=== PATIENT | female | born 1985 | race Caucasian/White ===

== ENCOUNTER 2016-12-09 08:04 | Inpatient (IN) | payer OTHER ==
[2016-12-09] VITALS (93 sets, daily range): BP systolic 119–154; BP diastolic 55–89; PULSE 81–140; RESP 18; TEMP 98–98.3
[~2016-12-09] VITALS: Ht 160 cm; Wt 98.9 kg
[2016-12-09] MEDS ORDERED: LACTATED RINGER'S 1000 ML INJ 1,000 ML IV PRN (08:44)
[2016-12-09] MEDS ORDERED: OXYTOCIN 30 UNITS-500ML PREMIX 500 ML IV ONE (08:45)
[2016-12-09] MEDS ORDERED: MINERAL OIL 10 ML VIAL TOPICAL PRN (08:45)
[2016-12-09] MEDS ORDERED: SODIUM CHLORID 0.9% 500 ML INJ 500 ML IV PRN (08:45)
[2016-12-09] MEDS ORDERED: CITRIC ACID-SODIUM CITRATE LIQ 30 ML UDC PO SCH (08:45)
[2016-12-09] MEDS ORDERED: ONDANSETRON HCL 4 MG/2 ML VIAL IV PRN (08:45)
[2016-12-09] MEDS ORDERED: LIDOCAINE HCL 1% 50 ML VIAL I-DERMAL PRN (08:45)
[2016-12-09] MEDS ORDERED: LIDOCAINE HCL 1% 50 ML VIAL INFIL PRN (08:45)
[2016-12-09] MEDS ORDERED: CALNTAB (08:54)
[2016-12-09] MEDS ORDERED: SODIUM CHLOR 0.9% 1000 ML INJ 1,000 ML IV PRN (09:04)
--- NOTE | 2016-12-09 09:20 | HHI.HP ---
History & Physical H&P HPI HPI Chief Complaint rupture of membranes, contractions Date Seen: Dec 09, 2016 Travel History International Travel<30 Days: No Contact w/Intl Traveler<30Days: No Known Affected Area: No History of Present Illness HPI Ms. Arrington is a 31 yo G[address] Charles at 39 4/7 weeks (SE 12/12/2016) who presents with contractions following rupture of membranes this morning. Patient reports that her water grossly broken 6 AM. Since this time, patient is had increasing pain with contractions of increasing frequency, currently occurring approximately every 23 minutes. Patient reports slight bloody discharge when her water initially broke but none since. Patient states she had normal movement until onset of contractions has not been doing as much since her contractions started. Patient does not report other symptoms this time; no headache, visual changes, chest pain, significant shortness of breath, nausea/vomiting, dysuria, or asymmetric leg swelling. Patient states that her blood pressures have been monitored during and that baseline preeclampsia labs been previously obtained by Dr. Charles. Patient otherwise reports benign course with reassuring ultrasound and labs. Patient states she is GBS negative. Para: 0 : 1 History (Limited) History Past Medical History Narrative Medical Headaches Obstetric History Obstetric History G1 PIH Past Surgical History Narrative Surgical [place] teeth removal Mole removal Family History Narrative Family History Unspecified cancer Social History Alcohol Use: No Tobacco Use: No Substance Abuse: No Allergies-Medications Allergies-Medications (Allergen,Severity, Reaction): Coded Allergies: No Known Allergies (Verified , 12/09/16) Home Meds Reported Medications Vitamin (Calna)1 Tab Tab 12/09/16 ROS Review of Systems General / Constitutional: No: Fever, Chills HENT: No: Headaches Cardiovascular: No: Chest Pain or Discomfort Respiratory: No: Short of Breath (mild throughout ) Gastrointestinal: No: Nausea, Vomiting Genitourinary: No: Dysuria Physical Exam Physical Exam Blood pressures: 148/99, 154/100, 152/87 HR 80s90s T 98.2 RR 18 Narrative GENERAL: Well-nourished, well-developed patient. SKIN: Warm and dry. HEAD: Normocephalic and atraumatic. EYES: No scleral icterus. No injection or drainage. ENT: No nasal drainage noted. Mucous membranes pink. Airway patent. NECK: Supple, trachea midline. No JVD. CARDIOVASCULAR: Regular rate and rhythm without murmurs, gallops, or rubs. RESPIRATORY: CTAB, normal rate ABDOMEN/GI: Abdomen soft, non-tender, bowel sounds present, no rebound, no guarding Gravid EXTREMITIES: No cyanosis or edema. NEUROLOGICAL: Awake and alert. Motor and sensory function grossly within normal limits. GENITOURINARY: (Exam performed by nursing staff) External Genitalia: intact and normal in appearance Cervix: Dilatation: 4 Effacement: 80% Station: -1 Presentation: V Membranes: Ruptured Uterine Contractions: Q23 minutes FHT's: Category: 1 Baseline: 140 Reactive: Y Variability: Moderate Decels: None Data Data Data Orders Ob (2e) Additional Admit Info (12/09/16 08:40) Admit To Inpatient (12/09/16 ) Code Status (12/09/16 08:44) Vital Signs (Adult) .Per protocol (12/09/16 08:44) Heart (12/09/16 08:44) Amnioinfusion (12/09/16 08:44) Urinary Catheter Management .ONCE (12/09/16 08:44) Diet Liquid (12/09/16 Breakfast) Lactated Ringer's 1000 Ml Inj (Lr 1000 M (12/09/16 08:44) Lactated Ringer's 1000 Ml Inj (Lr 1000 M (12/09/16 08:44) Sodium Chlorid 0.9% 500 Ml Inj (Ns 500 M (12/09/16 08:45) Sodium Chlor 0.9% 1000 Ml Inj (Ns 1000 M (12/09/16 09:04) Lidocaine 1% Inj (50 Ml) (Xylocaine 1% I (12/09/16 08:45) Citric Acid-Sodium Citrate Liq (Bicitra (12/09/16 08:45) Ondansetron Inj (Zofran Inj) (12/09/16 08:45) Fentanyl Inj (Fentanyl Inj) (12/09/16 08:45) Fentanyl Inj (Fentanyl Inj) (12/09/16 08:45) Complete Blood Count With Diff (12/09/16 08:44) Hold Clot (12/09/16 08:44) Abo/Rh Blood Type (12/09/16 08:44) Urinalysis - C+S If Indicated (12/09/16 08:44) Resp Oxygen Non Rebreathe Mask (12/09/16 ) ^ Epidural / Intrathecal Infus (12/09/16 08:44) Oxytocin 30 Units-500ml Premix (Pitocin (12/09/16 08:45) Lidocaine 1% Inj (50 Ml) (Xylocaine 1% I (12/09/16 08:45) Light Mineral Oil (Muri-Lube Oil) (12/09/16 08:45) Comprehensive Metabolic Panel (12/09/16 08:49) Protein Creat Ratio, Random Ur (12/09/16 08:49) MDM MDM Medical Record Reviewed: Yes Narrative Course / MDM 31 yo G1 patient of [address]. Charles at 39 4/7 weeks (SE 12/12/2016) who presents with contractions following rupture of membranes this morning -Contractions every 23 minutes -Cat 1 rhythm -Cervix 40/80%/-1 -GBS negative -PIH Impression: SBP 140's-150's/90's-100 today; patient reports mildly elevated BP during Plan: We'll plan to admit for labor Start IV fluids We'll obtain UA, CBC, blood typing Continue EFM We'll add CMP and urine protein/creatinine ratio due to elevated blood pressure and concern for worsening intrapartum Bandar Alonzo MD R2 Dec 09, 2016 09:20
[2016-12-09 09:35] LABS: AUTOMATED NEUTROPHIL # 7.1 TH/MM3 (1.8-7.7); BASOPHIL # 0.1 TH/MM3 (0-0.2); BASOPHIL % 0.8 % (0.0-2.0); EOSINOPHIL # 0.1 TH/MM3 (0-0.4); EOSINOPHIL % 0.9 % (0.0-4.0); HEMATOCRIT 37.2 % (35.0-46.0); HEMO FLAGS DIFF FINAL; LYMPH % 17.7 % (9.0-44.0); LYMPHOCYTE # 1.8 TH/MM3 (1.0-4.8); MEAN CORPUSCULAR HEMOGLOBIN 27.6 PG (27.0-34.0); MEAN CORPUSCULAR HGB CONC 33.3 % (32.0-36.0); MONO % 10.2 % (0.0-8.0); NEUT % 70.4 % (16.0-70.0); PLATELET COUNT 217 TH/MM3 (150-450); RED BLOOD COUNT 4.48 MIL/MM3 (4.00-5.30); RED CELL DISTRIBUTION WIDTH 13.7 % (11.6-17.2); WHITE BLOOD COUNT 10.1 TH/MM3 (4.0-11.0)
[2016-12-09 10:04] LABS: BACTERIA, URINE FEW /hpf; BLOOD, URINE SMALL (NEG); COMMENT (UR) CULTURE INDICATED; CULTURE IF INDICATED CULTURE INDICATED; GLUCOSE,URINE NEG (NEG); KETONE, URINE NEG (NEG); NITRITE,URINE NEG (NEG); SQUAMOUS EPITHELIAL CELL URINE 2 /hpf (0-5); URINE COLOR YELLOW (YELLW/STRAW)
[2016-12-09 10:10] LABS: ALKALINE PHOSPHATASE 295 U/L (45-117); ALT (GPT) 17 U/L (10-53); ANION GAP 10 MEQ/L (5-15); AST (GOT) 15 U/L (15-37); BICARBONATE 23.4 MEQ/L (21.0-32.0); BLOOD UREA NITROGEN 7 MG/DL (7-18); CHLORIDE 105 MEQ/L (98-107); GLOMERULAR FILTRATION RATE 85 ML/MIN (>89); POTASSIUM 3.8 MEQ/L (3.5-5.1); SODIUM (NA) 138 MEQ/L (136-145); TOTAL BILIRUBIN ADULT 0.2 MG/DL (0.2-1.0)
[2016-12-09] MEDS: LACTATED RINGER'S 1000 ML INJ 1,000 ML IV SCH ×2 (14:25→16:02)
[2016-12-09] MEDS ORDERED: BUPIVACAINE HCL PF 0.25% 10 ML VIAL ONE (15:26)
[2016-12-09] MEDS ORDERED: fentaNYL 2MCG-BUPIV 0.125% INJ 100 ML ONE (15:43)
[2016-12-09] MEDS ORDERED: MEASLES, MUMPS, RUBELLA VACCINE 0.5 ML VIAL SQ ONE (16:00)
[2016-12-09] MEDS ORDERED: DIPHTH/TETANUS/ACEL PERTUSSIS (BOOSTER) 0.5 ML VIAL/PFS IM ONE (16:00)
[2016-12-09] MEDS ORDERED: NO SYSTEM NARCOTICS PRN (17:00)
[2016-12-09] MEDS ORDERED: DO NOT ADMINISTER ANTICOAGULANTS PRN (17:00)
[2016-12-09] MEDS ORDERED: ePHEDrine/NS 25 MG/5 ML SYR IV PRN (17:00)
[2016-12-09] MEDS ORDERED: fentaNYL 2MCG-BUPIV 0.125% 100 ML EPIDURAL SCH (17:00)
--- NOTE | 2016-12-09 18:43 | PD.OB.DELI ---
Delivery Date: Dec 09, 2016 Anesthesia: Epidural Episiotomy: None Vaginal Delivery: Normal, Spontaneous Presentation: Occiput anterior Nuchal Cord: Other (body cord delivered through) Delayed cord clamping (45 sec): Yes Infant: Female One Minute : 9 Five Minute : 9 Weight: 7#10oz Placenta: Spontaneous delivery, Intact, 3 vessel cord Laceration: Vaginal laceration, 2 deg Repair: Chromic running Additional Information EBL 300 mL terminal meconium healthy female Kirstin Irvin MD Dec 09, 2016 18:43
[2016-12-09] MEDS ORDERED: ACETAMINOPHEN 325 MG TAB PO PRN (18:45)
[2016-12-09] MEDS ORDERED: SODIUM CHLORIDE 0.9% FLUSH 10 ML FLUSH IV FLUSH PRN (18:45)
[2016-12-09] MEDS ORDERED: ALUMINUM/MAGNESIUM/SIMETH 30 ML CUP PO PRN (18:45)
[2016-12-09] MEDS ORDERED: oxyCODONE/ACETAMINOPHEN 5 MG/325 MG TAB PO PRN ×2 (18:45)
[2016-12-09] MEDS ORDERED: WITCH HAZEL 50%/GLYCERIN 12.5% 40 PAD JAR TOPICAL PRN (18:45)
[2016-12-09] MEDS ORDERED: ZOLPIDEM TARTRATE 5 MG TAB PO PRN (18:45)
[2016-12-09] MEDS ORDERED: BENZOCAINE 20% TOPICAL SPRAY 60 ML CAN TOPICAL PRN (18:45)
[2016-12-09] MEDS ORDERED: ONDANSETRON ODT 4 MG TAB PO PRN (18:45)
[2016-12-09] MEDS ORDERED: IBUP-232 PO (18:48)
[2016-12-09] MEDS ORDERED: PERI8.6T PO (18:48)
--- NOTE | 2016-12-09 18:51 | HHI.DCPOC ---
Discharge Care Plan Diagnosis: (1) (spontaneous vaginal delivery) Your Health Problems Are: Vaginal delivery Report Symptoms to Your Doctor -Temperate above 100.5 degrees -Redness, of incision or excessive or foul smelling drainage -Unusual pain or calf pain -Increased vaginal bleeding -Painful or difficulty urinating -Feelings of extreme sadness or anxiety after 2 weeks Goals to Promote Your Health * To prevent worsening of your condition and complications * To maintain your health at the optimal level Directions to Meet Your Goals Take your medications as prescribed Follow your dietary instruction Follow activity as directed Ensure plenty of rest for recovery Drink fluids for hydration Keep your appointments as scheduled Take your immunizations and boosters as scheduled If your symptoms worsen call your PCP, if no PCP go to Urgent Care Center or Emergency Room Smoking is Dangerous to Your Health. Avoid second hand smoke Call the 24-hour crisis hotline for domestic abuse at Kirstin Irvin MD Dec 09, 2016 18:50
[2016-12-09] MEDS ORDERED: SODIUM CHLORIDE 0.9% FLUSH 10 ML FLUSH IV FLUSH SCH (21:00)
[2016-12-10] MEDS: DOCUSATE SODIUM 50 MG/SENNA 8.6 MG TAB PO SCH ×3 (00:49→21:39)
[2016-12-10] MEDS: IBUPROFEN 600 MG TAB PO PRN ×4 (00:50→22:52)
--- NOTE | 2016-12-10 05:22 | HHI.OB ---
Subjective Post Day: 1 Remarks s/p of healthy term female Objective Vitals/I&O Vital Signs Date Time Temp Pulse Resp B/P Pulse Ox O2 Delivery O2 Flow Rate FiO2 12/09/16 20:30 18 12/09/16 19:31 83 124/69 12/09/16 19:15 91 129/74 12/09/16 19:08 18 12/09/16 19:00 86 124/75 12/09/16 18:49 98.0 12/09/16 18:45 105 140/76 12/09/16 18:32 18 12/09/16 18:30 112 129/70 12/09/16 18:15 102 143/82 12/09/16 18:01 97 12/09/16 17:45 149/76 12/09/16 17:35 113 12/09/16 17:30 114 153/74 12/09/16 17:25 131 12/09/16 17:20 116 12/09/16 17:17 83 143/74 12/09/16 17:15 98 12/09/16 17:15 111 12/09/16 17:00 95 123/60 12/09/16 16:45 105 132/72 12/09/16 16:39 91 128/76 12/09/16 16:36 130/72 12/09/16 16:36 88 12/09/16 16:33 85 12/09/16 16:33 130/75 12/09/16 16:30 88 12/09/16 16:30 90 130/71 12/09/16 16:27 89 130/76 12/09/16 16:25 89 12/09/16 16:24 81 129/65 12/09/16 16:22 100 133/71 12/09/16 16:20 89 12/09/16 16:20 91 12/09/16 16:20 98.3 12/09/16 16:20 119/65 12/09/16 16:19 96 12/09/16 16:15 113 141/75 12/09/16 16:15 100 12/09/16 16:12 124 12/09/16 16:09 96 12/09/16 16:09 142/81 12/09/16 16:06 93 12/09/16 16:06 123/89 12/09/16 16:05 92 12/09/16 16:03 87 12/09/16 16:03 18 12/09/16 16:03 143/71 12/09/16 16:00 102 12/09/16 16:00 151/73 12/09/16 15:57 103 131/77 12/09/16 15:55 96 12/09/16 15:54 18 12/09/16 15:54 106 138/79 12/09/16 15:51 112 154/86 12/09/16 15:50 93 12/09/16 15:48 93 143/73 12/09/16 15:45 109 146/69 12/09/16 15:45 88 12/09/16 15:43 140 121/55 12/09/16 15:40 111 12/09/16 15:40 97 144/83 12/09/16 15:35 108 12/09/16 15:30 116 12/09/16 15:28 97 150/87 12/09/16 15:25 105 12/09/16 15:20 99 12/09/16 15:15 108 12/09/16 14:40 95 12/09/16 14:35 97 12/09/16 14:31 18 12/09/16 14:30 101 12/09/16 14:30 95 133/74 12/09/16 14:25 98 12/09/16 14:20 100 12/09/16 13:40 95 12/09/16 13:35 91 12/09/16 13:30 104 12/09/16 13:21 98.0 84 18 126/74 12/09/16 13:20 101 12/09/16 12:50 96 12/09/16 12:35 90 12/09/16 12:30 92 12/09/16 12:29 99 134/65 12/09/16 12:25 90 12/09/16 12:23 18 12/09/16 11:40 98.0 94 12/09/16 11:35 92 12/09/16 11:30 89 18 12/09/16 11:28 99 138/81 12/09/16 11:20 93 12/09/16 11:15 91 12/09/16 11:10 98 12/09/16 11:05 92 12/09/16 11:00 84 12/09/16 10:55 91 12/09/16 10:50 88 12/09/16 10:45 98 12/09/16 10:40 89 12/09/16 10:35 93 12/09/16 10:32 90 18 136/84 12/09/16 10:30 96 12/09/16 10:25 97 12/09/16 10:20 89 12/09/16 10:15 89 12/09/16 10:10 92 12/09/16 10:05 91 12/09/16 09:28 98.0 12/09/16 09:22 88 153/89 12/09/16 09:11 18 Objective Remarks GENERAL: Well-nourished, well-developed patient. CARDIOVASCULAR: Regular rate and rhythm without murmurs, gallops, or rubs. RESPIRATORY: Breath sounds equal bilaterally. No accessory muscle use. ABDOMEN/GI: Abdomen soft, non-tender. Fundus: Firm, non-tender at umbilicus. GENITOURINARY: Light bleeding. EXTREMITIES: No cyanosis or edema, non-tender, without signs of DVT. Medications and IVs Current Medications Medications (Trade) Dose Ordered Sig/Greg Route Start Time Stop Time Status Last Admin (NS Flush) 2 ml BID IV FLUSH 12/09/16 21:00 (NS Flush) 2 ml UNSCH PRN IV FLUSH 12/09/16 18:45 (Tylenol) 650 mg Q4H PRN PO 12/09/16 18:45 (Motrin) 600 mg Q6H PRN PO 12/09/16 18:45 12/10/16 00:50 (Percocet 5-325 Mg) 1 tab Q4H PRN PO 12/09/16 18:45 (Percocet 5-325 Mg) 2 tab Q4H PRN PO 12/09/16 18:45 (Americaine 20% Top Spr) 1 spray Q4H PRN TOPICAL 12/09/16 18:45 12/09/16 21:40 (Tucks Pads) 1 applic QID PRN TOPICAL 12/09/16 18:45 12/09/16 21:40 (Hillary-Colace) 2 tab Q12H PO 12/09/16 21:00 12/10/16 00:49 (Ambien) 5 mg HS PRN PO 12/09/16 18:45 (Mag-Al Plus Susp Liq) 15 ml Q8H PRN PO 12/09/16 18:45 (Zofran Odt) 4 mg Q6H PRN PO 12/09/16 18:45 Assessment/Plan Problem List: (1) (spontaneous vaginal delivery) Assessment and Plan PPD#1 supportive care shower, ambulate routine d/c planning for PPD#2 Discharge Planning routine, tmrw Kirstin Irvin MD Dec 10, 2016 05:22
[2016-12-10 08:00] VITALS: BP 136/80; PULSE 73; RESP 18; TEMP 98.3; O2SAT 98
[2016-12-10 19:30] VITALS: BP 136/30; PULSE 76; RESP 18; TEMP 98
[2016-12-11 08:20] VITALS: BP 134/83; PULSE 77; RESP 18; TEMP 98.4
--- NOTE | 2016-12-11 09:02 | HHI.OB ---
Subjective Post Day: 2 Remarks s/p of full term healthy female Objective Vitals/I&O Vital Signs Date Time Temp Pulse Resp B/P Pulse Ox O2 Delivery O2 Flow Rate FiO2 12/10/16 19:30 76 18 136/30 12/10/16 19:30 98.0 Objective Remarks GENERAL: Well-nourished, well-developed patient. CARDIOVASCULAR: Regular rate and rhythm without murmurs, gallops, or rubs. RESPIRATORY: Breath sounds equal bilaterally. No accessory muscle use. ABDOMEN/GI: Abdomen soft, non-tender. Fundus: Firm, non-tender at umbilicus. GENITOURINARY: Light bleeding. EXTREMITIES: No cyanosis or edema, non-tender, without signs of DVT. Medications and IVs Current Medications Medications (Trade) Dose Ordered Sig/Greg Route Start Time Stop Time Status Last Admin (NS Flush) 2 ml BID IV FLUSH 12/09/16 21:00 (NS Flush) 2 ml UNSCH PRN IV FLUSH 12/09/16 18:45 (Tylenol) 650 mg Q4H PRN PO 12/09/16 18:45 (Motrin) 600 mg Q6H PRN PO 12/09/16 18:45 12/10/16 22:52 (Percocet 5-325 Mg) 1 tab Q4H PRN PO 12/09/16 18:45 (Percocet 5-325 Mg) 2 tab Q4H PRN PO 12/09/16 18:45 (Americaine 20% Top Spr) 1 spray Q4H PRN TOPICAL 12/09/16 18:45 12/09/16 21:40 (Tucks Pads) 1 applic QID PRN TOPICAL 12/09/16 18:45 12/09/16 21:40 (Hillary-Colace) 2 tab Q12H PO 12/09/16 21:00 12/10/16 21:39 (Ambien) 5 mg HS PRN PO 12/09/16 18:45 (Mag-Al Plus Susp Liq) 15 ml Q8H PRN PO 12/09/16 18:45 (Zofran Odt) 4 mg Q6H PRN PO 12/09/16 18:45 Assessment/Plan Problem List: (1) (spontaneous vaginal delivery) Assessment and Plan PPD#2 continue supportive care meeting all d/c criteria d/c to home today, office f/u in 6 wks Discharge Planning routine, today Kirstin Irvin MD Dec 11, 2016 09:02
[2016-12-11] MEDS: IBUPROFEN 600 MG TAB PO PRN (09:08)
[2016-12-11] MEDS: DOCUSATE SODIUM 50 MG/SENNA 8.6 MG TAB PO SCH (09:08)
== END 2016-12-11 12:00 | disposition home or self-care (01) | DRG 775 ==
LOC: HOBED 08:04 → H2EA 08:45 → H1EA 20:45
PROVIDERS: ADMIT Obstetrics & Gynecology; ATTEND Obstetrics & Gynecology
PROC: 10E0XZZ Delivery of Products of Conception, External Approach (ICD-10-PCS; principal; 2016-12-09)
PROC: 3E0R3CZ (ICD-10-PCS; 2016-12-09)
PROC: 00HU33Z Insertion of Infusion Device into Spinal Canal, Percutaneous Approach (ICD-10-PCS; 2016-12-09)
PROC: 10907ZC Drainage of Amniotic Fluid, Therapeutic from Products of Conception, Via Natural or Artificial Opening (ICD-10-PCS; 2016-12-09)
DX: O71.4 Obstetric high vaginal laceration alone (principal); O77.0 Labor and delivery complicated by meconium in amniotic fluid; Z37.0 Single live birth; O69.81X0 Labor and delivery complicated by cord around neck, without compression, not applicable or unspecified; Z3A.39 39 weeks gestation of pregnancy
CPT/HCPCS: 80053; 81001; 82570; 84112; 84156; 85025; 86900; 86901; 87086; 90715; 99285; J3010; J7120

== ENCOUNTER 2017-11-08 07:44 | Emergency (ER) | payer OTHER ==
[~2017-11-08] VITALS: Ht 160 cm; Wt 86.0 kg
[~2017-11-08 07:44] MED LIST: CALNTAB; IBUP-232 PO; PERI8.6T PO
[2017-11-08 07:46] VITALS: BP 177/92; PULSE 117; RESP 20; TEMP 98.9; O2SAT 95
[2017-11-08] MEDS ORDERED: NORE1TAB73 PO (07:59)
[2017-11-08] MEDS ORDERED: CLAR500T PO (07:59)
[2017-11-08] MEDS ORDERED: MONT10TA2 PO (07:59)
[2017-11-08] MEDS ORDERED: HUMIBIDDM PO (07:59)
[2017-11-08] MEDS ORDERED: methylPREDNISolone SOD SUCC 125 MG/2 ML VIAL IV PUSH ONE (08:00)
[2017-11-08] MEDS: RESP: ALBUTEROL 2.5 MG/IPRATROPIUM 0.5 MG NEB (SCH) INH ×2 (08:00→08:01)
[2017-11-08] MEDS ORDERED: SODIUM CHLORIDE 0.9% FLUSH 10 ML FLUSH IVF PRN (08:00)
--- NOTE | 2017-11-08 08:19 | PD ---
HPI . Shortness of breath Chief Complaint: Respiratory Symptoms Time Seen by Provider: 07:50 Travel History International Travel<30 days: No Contact w/Intl Traveler<30days: No Traveled to known affect area: No History of Present Illness HPI This patient presents with a 2 day history of shortness of breath. She is also complaining with nasal congestion. She states that her ENT doctor has prescribed her Singulair and Biaxin. She has been taking the Biaxin for 3 days. Despite this, she has not gotten any better. In fact, she is getting gradually worse. She has noted some wheezing. She denies any history of asthma , bronchospasm or COPD. She has attributed the wheezing noise to her nose. PFSH Past Medical History Blood Disorders: No Heart Rhythm Problems: No Cancer: No High Cholesterol: No Chest Pain: No Congestive Heart Failure: No Diminished Hearing: No Endocrine: No Genitourinary: No Headaches: Yes Hypertension: No Immune Disorder: No Musculoskeletal: No Psychiatric: No Reproductive: No Respiratory: No Myocardial Infarction: No Influenza Vaccination: Yes ?: Not LMP: 3 WEEKS Past Surgical History Pacemaker: No Social History Alcohol Use: No Tobacco Use: No Substance Use: No Allergies-Medications (Allergen,Severity, Reaction): Coded Allergies: No Known Allergies (Verified Adverse Reaction, Unknown, 11/08/17) Reported Meds & Prescriptions Reported Meds & Active Scripts Active Reported Blisovi 24 Fe 09/02 (Norethindrone-Ethinyl Estradiol-Fe) 1-20 Mg-Mcg Tab 1 Tab PO DAILY Mucinex DM (Dextromethorphan-Guaifenesin) 30-600 Mg Tab 1 Tab PO BID PRN Singulair (Montelukast Sodium) 10 Mg Tab 10 Mg PO DAILY Clarithromycin 500 Mg Tab 500 Mg PO BID Review of Systems Except as stated in HPI: all other systems reviewed are Neg General / Constitutional: No: Fever, Chills HENT: Positive: Congestion Respiratory: Positive: Shortness of Breath, Wheezing Physical Exam Narrative GENERAL: Awake and alert and in no acute distress. SKIN: Warm and dry. HEAD: Normocephalic/atraumatic. EYES: Pupils are equal. Extraocular movements are intact. ENT: No edema of the nasal turbinates and no visible sinus drainage. Sinuses are nontender to percussion. Oropharynx is clear. NECK: Normal range of motion. No cervical lymphadenopathy. CARDIOVASCULAR: Regular rate and rhythm. Heart sounds are normal. RESPIRATORY: Nonlabored respirations. She has diffuse expiratory wheezing. MUSCULOSKELETAL: Atraumatic. NEUROLOGICAL: Nonfocal. PSYCHIATRIC: Appropriate mood and affect. Data Data Last Documented VS Vital Signs Date Time Temp Pulse Resp B/P (MAP) Pulse Ox O2 Delivery O2 Flow Rate FiO2 11/08/17 08:41 121 18 152/78 (102) 98 11/08/17 07:46 98.9 Orders Orders Basic Metabolic Panel (Bmp) (11/08/17 07:54) Complete Blood Count With Diff (11/08/17 07:54) Chest, Single Ap (11/08/17 07:54) Iv Access Insert/Monitor (11/08/17 07:54) Methylprednisolone So Succ Inj (Solumedr (11/08/17 08:00) Albuterol-Ipratropium Neb (Duoneb Neb) (11/08/17 08:00) Sodium Chloride 0.9% Flush (Ns Flush) (11/08/17 08:00) Labs Laboratory Tests Test 11/08/17 08:05 White Blood Count 11.1 TH/MM3 Red Blood Count 4.97 MIL/MM3 Hemoglobin 14.4 GM/DL Hematocrit 41.4 % Mean Corpuscular Volume 83.1 FL Mean Corpuscular Hemoglobin 28.9 PG Mean Corpuscular Hemoglobin Concent 34.7 % Red Cell Distribution Width 12.4 % Platelet Count 364 TH/MM3 Mean Platelet Volume 8.9 FL Neutrophils (%) (Auto) 71.9 % Lymphocytes (%) (Auto) 15.9 % Monocytes (%) (Auto) 6.6 % Eosinophils (%) (Auto) 4.5 % Basophils (%) (Auto) 1.1 % Neutrophils # (Auto) 8.0 TH/MM3 Lymphocytes # (Auto) 1.8 TH/MM3 Monocytes # (Auto) 0.7 TH/MM3 Eosinophils # (Auto) 0.5 TH/MM3 Basophils # (Auto) 0.1 TH/MM3 CBC Comment DIFF FINAL Differential Comment Blood Urea Nitrogen 7 MG/DL Creatinine 0.76 MG/DL Random Glucose 107 MG/DL Calcium Level 8.7 MG/DL Sodium Level 136 MEQ/L Potassium Level 3.7 MEQ/L Chloride Level 105 MEQ/L Carbon Dioxide Level 24.2 MEQ/L Anion Gap 7 MEQ/L Estimat Glomerular Filtration Rate 89 ML/MIN MDM Medical Decision Making Medical Screen Exam Complete: Yes Emergency Medical Condition: Yes Differential Diagnosis My differential diagnosis includes but is not limited to asthma, COPD, bronchitis, pneumonia, CHF Narrative Course This patient presents with shortness of breath associated with wheezing. She will be treated with Solu-Medrol and stacked DuoNeb nebs. Following the nebs, her aeration is improved. Her wheezing is course her. Last Impressions Chest X-Ray 11/08/17 0754 Signed Impressions: Service Date/Time: Monday, November 08, 2017 08:07 - CONCLUSION: Normal examination. Raleigh Bryan Jr., MD The chest x-ray was independently viewed by me. CBC & BMP Diagram 11/08/17 08:05 Calcium Level 8.7 The patient will be discharged with prescriptions for steroids, guaifenesin and an albuterol MDI Diagnosis Primary Impression: Bronchospasm Patient Instructions: Bronchospasm (DC), General Instructions Additional Instructions: Steroids and the inhaler as instructed for bronchospasm. Guaifenesin to help loosen your secretions. Med/Other Pt SpecificInfo: Prescription(s) given Scripts Albuterol 18 GM Inh (Ventolin Hfa 18 GM Inh) 90 Mcg/Act Aer 2 PUFF INH Q4-6H Y for SHORTNESS OF BREATH, #1 INHALER 0 Refills Prov: Virginie Del Rosario MD 11/08/17 Prednisone (Prednisone) 50 Mg Tab 50 MG PO DAILY for 5 Days, #5 TAB 0 Refills Prov: Virginie Del Rosario MD 11/08/17 Disposition: 01 DISCHARGE HOME Condition: Stable Virginie Del Rosario MD Nov 08, 2017 08:19
[2017-11-08 08:32] LABS: CALCIUM 8.7 MG/DL (8.5-10.1)
[2017-11-08 08:33] LABS: BICARBONATE 24.2 MEQ/L (21.0-32.0)
[2017-11-08 08:37] LABS: CREATININE 0.76 MG/DL (0.50-1.00)
--- NOTE | 2017-11-08 08:37 | RADRPT ---
EXAM DATE/TIME: 11/08/2017 08:07 [facility] COMPARISON: No previous studies available for comparison. INDICATIONS : Wheezing, difficulty breathing. MEDICAL HISTORY : None. SURGICAL HISTORY : None. ENCOUNTER: Initial ACUITY: 4 - 6 days PAIN SCORE: 0/10 LOCATION: Bilateral chest FINDINGS: A single view of the chest demonstrates the lungs to be symmetrically aerated without evidence of mas s, infiltrate or effusion. The cardiomediastinal contours are unremarkable. Osseous structures are intact. CONCLUSION: Normal examination. Raleigh Bryan Jr., MD on November 08, 2017 at 8:35 Board Certified Radiologist. This report was verified electronically.
[2017-11-08 08:41] VITALS: BP 152/78; PULSE 121; RESP 18; O2SAT 98
[2017-11-08 08:43] LABS: BASOPHIL # 0.1 TH/MM3 (0-0.2); BASOPHIL % 1.1 % (0.0-2.0); EOSINOPHIL # 0.5 TH/MM3 (0-0.4); EOSINOPHIL % 4.5 % (0.0-4.0); HEMATOCRIT 41.4 % (35.0-46.0); HEMOGLOBIN 14.4 GM/DL (11.6-15.3); LYMPH % 15.9 % (9.0-44.0); LYMPHOCYTE # 1.8 TH/MM3 (1.0-4.8); MEAN CELL VOLUME 83.1 FL (80.0-100.0); MEAN CORPUSCULAR HEMOGLOBIN 28.9 PG (27.0-34.0); MEAN CORPUSCULAR HGB CONC 34.7 % (32.0-36.0); MEAN PLATELET VOLUME 8.9 FL (7.0-11.0); MONO % 6.6 % (0.0-8.0); MONOCYTE # 0.7 TH/MM3 (0-0.9); NEUT % 71.9 % (16.0-70.0); PLATELET COUNT 364 TH/MM3 (150-450); RED BLOOD COUNT 4.97 MIL/MM3 (4.00-5.30); RED CELL DISTRIBUTION WIDTH 12.4 % (11.6-17.2); WHITE BLOOD COUNT 11.1 TH/MM3 (4.0-11.0)
[2017-11-08] MEDS ORDERED: PRED50 PO (08:53)
[2017-11-08] MEDS ORDERED: VENTAER INH (08:53)
[2017-11-08] MEDS ORDERED: GUAI600T11 PO (08:54)
== END 2017-11-08 09:19 | disposition home or self-care (01) ==
LOC: PHED 07:44
DX: J98.01 Acute bronchospasm (principal); R06.02 Shortness of breath; R06.2 Wheezing; R09.81 Nasal congestion; Z79.899 Other long term (current) drug therapy
CPT/HCPCS: 71045; 80048; 85025; 94640; 94664; 96374; 99285; J2930